=== PATIENT | female | born 1980 | race Caucasian/White ===

== ENCOUNTER → 2020-09-06 13:38 | Outpatient (CLI) | payer OTHER, SELFPAY ==
--- NOTE | 2020-09-06 13:45 | RAD_ITS ---
STUDY: X-RAY - LEFT FOOT CLINICAL: Female, 39 years old. Pain, decreased range of motion TECHNIQUE: 3 view(s) of the foot. COMPARISON: None. FINDINGS: Normal talus and tarsal bones. Calcaneal spurs Normal visualized subtalar, talonavicular, calcaneocuboid, tarsal and tarsometatarsal articulations. Normal metatarsi. Normal metatarsophalangeal joint of the great toe. Normal tibial and fibular sesamoid bones. Normal interphalangeal joint of the great toe. Normal phalanges of the great toe. Normal second through fifth metatarsophalangeal joints. Normal interphalangeal joints and phalanges of the lesser toes. The soft tissue structures are unremarkable. RAD/Foot min 3 Views IMPRESSION: Calcaneal spurs, no demonstrated fracture or suspicious osseous lesion Electronically Signed: Santi Hinkle MD at 15:13 EST , Service support ,
--- NOTE | 2020-09-06 13:45 | RAD_ITS ---
STUDY: X-RAY - LEFT ANKLE REASON FOR EXAM: Female, 39 years old. Pain and swelling TECHNIQUE: 3 view(s) of the ankle. COMPARISON: None. FINDINGS: Normal visualized distal tibia and fibula. Normal medial and lateral malleoli. Normal tibiotalar articulation and ankle mortise. Normal visualized talus. Calcaneal spurs The visualized subtalar, talonavicular, calcaneocuboid and tarsal articulations are normal. The soft tissue structures are unremarkable. RAD/Ankle min 3 Views IMPRESSION: Calcaneal spurs, no demonstrated fracture or suspicious osseous lesion Electronically Signed: Santi Hinkle MD at 15:12 EST , Service support ,
== END ==
PROVIDERS: PCP Family Medicine; Referring Provider Podiatrist; Visit Provider Podiatrist
DX: M76.60 Achilles tendinitis, unspecified leg (principal); M77.32 Calcaneal spur, left foot
CPT/HCPCS: 73610; 73630

== ENCOUNTER 2020-10-19 05:52 | Day surgery (SDC) | payer OTHER, SELFPAY ==
[2020-10-19] VITALS (10 sets, daily range): BP systolic 107–130; BP diastolic 55–70; PULSE 39–60; RESP 14–18; TEMP 36.3–36.8; O2SAT 99–100; BMI 18.3
--- NOTE | 2020-10-19 | TESH_PTH ---
PATIENT: LUDA HONG [place] [facility] [place][id number] AGE/SX: 39/F ROOM: RE10/19/[address]: Dr. Bobby Wolf DPM : 1980 BED: DIS: 10/19/2020 SPEC #: [id number] RECD: 10/19/20 11:19 STATUS: JERROD REGely #: [id number] LIANA: 10/19/20 00:[address]: Bobby Wolf DEPT: SURGICAL PATHOLOGY RECD BY: Jacky Emerson ENTERED: 10/19/20 11:19 SP TYPE: TENDON OTHR DR: Dr. Che Gomez, DO Tissues: Tendon and tendon sheath, NOS Procedures: Decalcification bone/plaque Surgery Specimen Level IV HEADER OPERATION: Left foot excision of Patsy's deformity, detach/reattached Achilles PRE-OP DIAGNOSIS: Patsy's deformity, Achilles tendinopathy with partial tear TISSUE SUBMITTED: Patsy's deformity and debrided Achilles tendon MICROSCOPIC DIAGNOSIS Patsy's deformity and debrided Achilles tendon, excision: Bone with reparative and reactive change. Tendinous tissue with focal reparative change. AM:yaniv 10/25/2020 MICROSCOPIC DESCRIPTION Slides are reviewed. GROSS DESCRIPTION Received in fixative is one container labeled with the patient's name and designated Patsy's deformity Achilles tendon. The specimen consists of multiple irregular fragments of indurated, mcgrath-white soft tissue and bone that in aggregate measure 7 x 5 x 1 cm. Robotic Technician sections are submitted in one cassette after decalcification. / AM:yaniv 10/19/20 TC:5 CPT: 12189, 80976
[2020-10-19] MEDS: Lactated Ringers 1,000 ML 100 ML IV ×2 (06:30→07:30)
[2020-10-19 06:36] LABS: Absolute Lymphocyte Count 1.48 X10^3/uL (0.83-4.51); Absolute Neutrophil Count 3.7 X10^3/uL (2.0-7.7); Basophil# 0.07 X10^3/uL; Basophil% 1.2 % (0-1); Eosinophil# 0.11 X10^3/uL; Eosinophils% 1.9 % (0-5); Hematocrit 40.2 % (37-47); Lymphocyte # 1.48 X10^3/ul (4.0); Lymphocyte % 25.2 % (19-41); Mean Corp Hgb Conc 32.3 g/dL (32-36); Mean Corpuscular Hgb 29.7 pg (27.0-32.0); Mean Platelet Vol. 10.7 fl (6.2-12.0); Monocyte# 0.47 X10^3/uL; NRBC Flagged by Analyzer 0 % (0-5); Neutrophil # 3.72 X10^3/uL (2.7-7.7); Neutrophil % 63.2 % (47-70); Platelet Count 228 K/mm3 (150-450); RBC Distribution Width CV 12.4 % (11.6-14.6); Red Blood Count 4.37 M/mm3 (4.2-5.4); White Blood Count 5.9 K/mm3 (4.4-11.0)
[2020-10-19 06:38] LABS: Internal QC Validated? YES +Cl - CLEAR BKGD; Pregnancy, Urine Negative Negative
[2020-10-19 06:52] LABS: ALB/GLOB Ratio 1.1 RATIO (0.9-2.4); AST(SGOT) 43 U/L (15-37); Alanine Aminotransfer ALT/SGPT 53 U/L (13-56); Alkaline Phosphatase 39 U/L (45-117); Anion Gap 4 (5-15); BUN 21 mg/dL (7-18); BUN/Creat Ratio 23.8 RATIO (10-20); Calcium,Total 8.8 mg/dL (8.5-10.1); Chloride 108 mmol/L (98-107); Creatinine, Serum 0.88 mg/dL (0.55-1.02); EST Glomerular Filtration Rate 75 mL/min (>60); Est Glom Filt Rate - Afr Amer 91 mL/min (>60); Estimated Creatinine Clearance 73.98 ml/min; Globulin 3.5 g/dL (2.2-4.2); Glucose 81 mg/dL (74-106); Protein, Total 7.5 g/dL (6.4-8.2); Sodium Level 139 mmol/L (136-145)
--- NOTE | 2020-10-19 07:10 | RAD_ITS ---
STUDY: X-RAY - LEFT CALCANEUS REASON FOR EXAM: Female, 39 years old. EXCISION OF HAGLUNDS DEFORMITY, TENDON DEBRIDEMENT AND REPAIR TECHNIQUE: 2 view(s) of the calcaneus were obtained. COMPARISON: None. FINDINGS: There has been excision of the posteriosuperior aspect of the calcaneal tuberosity. There is plantar calcaneal spur. There are postsurgical changes of the soft tissues. RAD/Calcaneus min 2 Views IMPRESSION: See above. Electronically Signed: Joseph Courtney MD at 11:03 EDT Tel , Service support ,
[2020-10-19] MEDS: Cefazolin 2 GM in 0.9% Normal Saline 100 ML IV (07:23)
--- NOTE | 2020-10-19 07:29 | DCINST_ITS ---
Discharge Diet: Light diet - advance as tolerated Discharge Activity: May Not Drive, May not drive while taking narcotic pain medications., Use Walker, Use Crutches Weight Bearing Status: No weight bearing - No weightbearing left foot. Keep extremity elevated above heart level: Left Leg - Keep left foot elevated with pillows for at least 50 minutes an hour. Keep pressure off of left heel. Call your doctor if your incision/area has: Continuous Slow Oozing, Sudden Increased Bleeding, Foul Smelling Discharge Call your doctor if you observe: Fever of 101 or Higher, Shortness of breath, Chest pain, Increased palpitations (irregular heartbeat), Calf discomfort, Uncontrolled pain Cleanse incision/area with: Do not get Incision Wet, Keep Dressing Clean & Dry Additional Instructions: Take 1 tablet of Aspirin (325mg tablet) by mouth every morning to help prevent a blood clot, then take 1 tablet of Aspirin (325mg tablet) by mouth every 6 hours as needed for pain. You can also take hydrocodone 5mg/acetaminophen 300mg - 1-2 tabs by mouth every 6 hours as needed for pain. Allergies/Adverse Reactions: Allergies No Known Allergies Allergy (Verified 10/19/20 06:36) Medications to take at Discharge Ascorbic Acid [Vitamin C] 500 mg PO DAILY 10/12/20 Multivitamin [Multiple Vitamins] 1 ea PO DAILY 10/12/20 Aspirin 325 mg PO Q6H PRN PRN #60 tablet 10/19/20 Hydrocodone/Acetaminophen [Vicodin 5-300 mg Tablet] 1 - 2 tablet PO Q6H PRN PRN 3 Days #20 tablet 10/19/20 The following prescriptions were given: Aspirin 325 mg PO Q6H PRN PRN #60 tablet PRN Reason: Pain Score 1-10 Prescription Printed Hydrocodone/Acetaminophen [Vicodin 5-300 mg Tablet] 1 - 2 tablet PO Q6H PRN PRN 3 Days #20 tablet PRN Reason: Pain Score 4-10 Prescription Printed Primary Care Physician: hCe Gomez DO [Primary Care Provider] - Test Results: Test results from this visit will be discussed in further detail at your follow- up appointment, if applicable. Please Follow Up With: Bobby Wolf DPM - call Dr. Wolf sooner if needed - office: [phone], hospital: [phone], cell: [phone] When: 1 week, sooner if needed
[2020-10-19] MEDS: Bupivacaine Mpf 0.5% 30 ML VIAL INFILT (08:05)
--- NOTE | 2020-10-19 09:43 | RAD_ITS ---
STUDY: X-RAY - LEFT CALCANEUS REASON FOR EXAM: Female, 39 years old. post op TECHNIQUE: 2 view(s) of the calcaneus were obtained. COMPARISON: None. FINDINGS: There is a cast in place. There has been excision of the posteriosuperior aspect of the calcaneal tuberosity. There is plantar calcaneal spur. There are postsurgical changes of the soft tissues. RAD/Calcaneus min 2 Views IMPRESSION: See above. Electronically Signed: Joseph Courtney MD at 11:04 EDT Tel , Service support ,
--- NOTE | 2020-10-19 09:44 | PCM.OPRPT ---
Report of Operation Date of Procedure: 10/19/20 Pre-Operative Diagnosis: Patsy's deformity, achilles tendinopathy, left Post-Operative Diagnosis: Same Surgery/Procedure Performed:: Resection of Patsy's deformity, left. Debride and repair of achilles tendon, left door operator: yes - Dr. Jeremiah Benítez Type of Anesthesia:: General, Local Specimen's removed: Resected Patsy's deformity, debrided achilles tendon - left - sent to pathology Estimated Blood Loss (mL): 5mL Description of Procedure: Indications: This is a 39 year old female with chronic left heel and Achilles pain, despite extensive conservative/nonsurgical management. She continues to have pain and symptoms. Xrays showed a Patsy's deformity, as well as Achilles tendinosis with partial tearing along with bone marrow edema to the posterior superior calcaneus. She continues to have pain which was really bothering her and affecting her daily activities. She is a runner and is significantly affecting her running as well. Because symptoms persist, she has elected to undergo detach/reattach Achilles tendon with resection of the Patsy's Deformity along with debride and repair the Achilles tendon. MRI was reviewed pre op. The procedures were discussed with her in great detail, reviewed the possible benefits vs risks and potential complications. She was asked and she has personally has no history or family history of blood clots or clotting disorders. Typical post op recovery was reviewed with her. The goals and the expectations were reviewed with her in detail. The consent forms were reviewed with her in detail, and she freely signed them. No guarantees were given or implied. All of her questions were answered. Operative Procedure: The patient was brought back into the operating room. A time out was performed and the patient was properly identified and the surgical plan was confirmed. The patient received 2 gram of IV Ancef for antibiotic prophylaxis. A well padded pneumatic tourniquet was applied around the left thigh. The patient received general per the anesthesiologist. The patient was placed on the operating room table in the prone position, with good padding and offloading for all of the bony prominences. She was carefully secured to the operating room table with a safety belt around her waist. The left foot/ankle/leg were scrubbed, prepped, draped in the usual aseptic fashion. The left foot was elevated and exsanguinated using an Esmarch bandage and the left thigh pneumatic tourniquet was inflated to 300mmHg. 20mL of 0.5% bupivacaine plain was given as a local nerve block around the posterior heel surgical site. Attention was directed to the posterior heel. There was a large palpable exostosis present at the level of the posterior calcaneus consistent with Patsy's deformity. A linear incision was made using a 15 blade to the posterior aspect of the distal Achilles tendon and posterior calcaneus. Careful blunt dissection was completed down through the subcutaneous tissue layer, down to the Achilles tendon and posterior calcaneus. There was noted to be thickening and calcification in the Achilles tendon distally with partial tearing of the tendon distal laterally. The distal Achilles tendon was incised at the level of the distal midline, and was partially reflected off of the central posterior calcaneus exposing the Patsy's deformity. The Patsy's deformity were resected using a powered sagittal saw and a powered rasp, the resected bone was sent to pathology. Intraoperative fluoroscopy was obtained confirming proper resection of the Patsy's deformity. The Achilles tendon was debrided of the unhealthy tendinosis calcific tissue down to healthy viable tendon, this was sent with the resected Patsy's deformity to pathology as specimen. The site was flushed out with copious amounts of normal saline solution. The Achilles tendon was reattached to the central portion of the posterior calcaneus using 1 Arthrex Speedbridge in standard fashion. 2 pilot control operator helper holes were created for the 4.75mm BioComposite Swivelock anchors at the level of 1 cm proximal to the distal insertion of the Achilles tendon and central to each half of the tendon. The pilot control operator helper holes were tapped with the 4.75mm tap. The two 4.75mm BioComposite Swivel anchors were inserted. The suture was passed through the Achilles tendon on each side. The 2 distal holes were prepared on the posterior calcaneus distal to the insertion of the Achilles tendon with the drill and then the tap. One suture tail from each of the proximal anchors were retrieved and passed through the 2 SwiveLock anchors. The tension was adjusted to the appropriate tension and the 4.75 mm Swivelock anchors were inserted into the distal prepared bone sites. The suture tails were cut flush with the Swivelock anchors. The Swivelock anchors were flush with the bone. The FiberWire suture from each Swivelock anchor was also passed through the Achilles tendon and tied for extra stability and repair. 3-0 Vicryl was also used to repair the partial Achilles tendon tear, as well as reapproximate the midline Achilles tendon incision. There was excellent repair of the Achilles tendon, with negative Herrrea test. The surgical site was flushed out with copious amounts of normal saline solution. The subcutaneous tissue layer was reapproximated using 4-0 Vicryl. the skin was reapproximated using 4-0 Monocryl. The pneumatic tourniquet was deflated at 77 minutes, there was immediate return of warmth and perfusion to the foot and to all toes on the foot with normal temperature present. CFT < 2 seconds to all toes. An additional 10mL of 0.5% bupivacaine plain was given as a local nerve block around the surgical site. A dressing was applied which consisted of Cavilon to the sutured skin incision edges, and then steristrips, Betadine soaked adaptic, 4x4 gauze, Kerlix and cole bandage, and a well padded below the knee posterior splint with heel offloaded. The patient tolerated the above operative procedure well at the anesthesia well with no complication. The patient was transported to the recovery room with vital signs stable and in good condition. Post operative orders were placed. Post operative instructions were reviewed with her as well as with her who was present with her today. No weightbearing left foot, keep left foot elevated for at least 50 minutes of every hour, keep dressing clean, dry and intact. Prescription for [place] 5mg/325mg was prescribed: 1-2 tabs PO q 6 hours PRN pain for pain control, as well as Aspirin 325mg tab - 1 tab PO q 6 hours. She is to follow up with me within 1 week or sooner if needed. Post operative calcaneal xrays, 2 views, were obtained in the recovery room which confirmed resection of the left Patsy deformity, with no post operative complications. Grafts/Implants Used: Arthrex Achilles Spreedbridge - Complications None
[2020-10-19 10:55] LABS: AST(SGOT) 34 U/L (15-37)
== END 2020-10-19 11:37 | disposition home or self-care (01) ==
LOC: SDC 05:53 → AC 05:53
PROVIDERS: Anesthesiology; PCP Family Medicine; Referring Provider Podiatrist; Visit Provider Podiatrist
PROC: (CPT 28899; principal; 2020-10-19 07:15)
DX: M92.62 Juvenile osteochondrosis of tarsus, left ankle (principal); M76.62 Achilles tendinitis, left leg; Z20.822 Contact with and (suspected) exposure to COVID-19
CPT/HCPCS: 01472; 27650; 28118; 73650; 76000; 80053; 81025; 84450; 85025; 87426; 88304; 88305; 88311; C9803; J7120; J2405

== ENCOUNTER → 2022-12-09 | Outpatient (CLI) | payer OTHER, SELFPAY ==
--- NOTE | 2022-12-09 16:00 | MRI_ITS ---
STUDY: MRI LEFT ANKLE WITHOUT CONTRAST REASON FOR EXAM: Female, 41 years old. Achilles tendinitis. Plantar fasciitis. Status post posterior calcaneal surgery. TECHNIQUE: Standardized fat and water weighted pulse sequences were obtained in all 3 orthogonal planes. COMPARISON: None. FINDINGS: Normal subcutis adipose space. Normal posterior tibialis tendon. Normal flexor digitorum longus tendon. Normal flexor hallucis longus tendon. Normal peroneus longus and brevis tendons. Normal tibialis anterior tendon. Normal extensor hallucis longus tendon. Normal extensor digitorum longus tendons. 2 screws in the posterior calcaneus at the Achilles tendon insertion. Distal Achilles tendinosis. Mild thickening of the proximal plantar fascia. Normal plantar calcaneal tubercles. Normal intrinsic muscles of the rearfoot. Normal distal tibiofibular syndesmotic ligamentous complex. Normal lateral ligamentous complex. Normal subtalar ligaments and sinus tarsi. Normal deltoid ligamentous complexes. Normal plantar calcaneonavicular (spring) ligament. Normal tibiotalar articulation. Normal talar dome. Normal subtalar articulations. Normal talonavicular articulation. Normal calcaneocuboid articulation. Normal navicular-cuneiform articulations. MRI/Lower Ext Joint Only (Routine) IMPRESSION: Postsurgical changes of the posterior calcaneus at the Achilles tendon insertion. Distal Achilles tendinosis. Proximal plantar fasciitis. No other abnormality. Electronically Signed: Vishal Dickey, at 12:01 EDT ,
== END | disposition home or self-care (01) ==
LOC: MRI 15:27
PROVIDERS: PCP Family Medicine; Referring Provider Podiatrist; Visit Provider Podiatrist
DX: M76.62 Achilles tendinitis, left leg (principal); M72.2 Plantar fascial fibromatosis
CPT/HCPCS: 73721

== ENCOUNTER 2023-02-06 08:57 | Day surgery (SDC) | payer OTHER, SELFPAY ==
[2023-02-06] VITALS (7 sets, daily range): BP systolic 86–111; BP diastolic 51–68; PULSE 35–60; RESP 16–18; TEMP 36.4–36.9; O2SAT 99–100; BMI 18.3
[2023-02-06 09:37] LABS: Internal QC Validated? YES +Cl - CLEAR BKGD; Pregnancy, Urine Negative Negative
[2023-02-06] MEDS: Lactated Ringers 1,000 ML 15 ML IV ×2 (09:40→11:31)
--- NOTE | 2023-02-06 10:30 | TESH_PTH ---
PATIENT: LUDA HONG LOC: [facility] – [place] U#:[id number] AGE/SX: 42/F ROOM: RE02/06/[address]: JACK CallejasM : 1980 BED: DIS: 02/06/2023 SPEC #: [id number] RECD: 02/06/23 14:04 STATUS: JERROD SEEMA #: [id number] LIANA: 02/06/23 10:[address]: Bobby Wolf DEPT: SURGICAL PATHOLOGY RECD BY: Jenny Campos ENTERED: 02/09/23 08:42 SP TYPE: TENDON OTHR DR: Dr. Che Gomez, DO Tissues: Tendon and tendon sheath, NOS Procedures: Surgery Specimen Level III HEADER OPERATION: Removal of Haglunds Deformity/Exostosis of the heel PRE-OP DIAGNOSIS: Haglunds Deformity of left heel TISSUE SUBMITTED: Debrided christi's tendon and Haglunds deformity left ankle. MICROSCOPIC DIAGNOSIS Christi's tendon and Haglunds deformity left ankle, excision: Fragments of fibroadipose tissue, fibroconnective tissue, and bone with reactive changes. SJ: 02/10/2023 MICROSCOPIC DESCRIPTION Slides are reviewed. GROSS DESCRIPTION Received is one container labeled with the patient name and designated debrided christi's tendon and Hagland's deformity left ankle. The specimen consists of multiple irregular fragments of light mcgrath indurated tissue that in aggregate measure 5.5 x 3.5 x 1.5 cm. The inside sales representative specimen is submitted in two cassettes. / SJ: 02/09/23 TC:5 CPT:03024
--- NOTE | 2023-02-06 10:30 | RAD_ITS ---
HISTORY: PAIN. TECHNIQUE: Calcaneus 2 spot images. COMPARISON: Collateral are 10/19/2021. FINDINGS: OSSEOUS STRUCTURES: Partial resection of the calcaneal tuberosity. Plantar calcaneal spur noted. FLUOROSCOPY TIME: 29 seconds. RADIATION DOSE: 0.19 mGy RAD/Calcaneus min 2 Views IMPRESSION: Image guidance for left calcaneal surgery. Electronically Signed: Hodan Aj MD at 13:28 EDT ,
--- NOTE | 2023-02-06 11:22 | PCM.DC ---
Discharge Instructions Diet Discharge Diet: Light diet - advance as tolerated Activity Weight Bearing Status: No weight bearing (No weightbearing left foot) Keep extremity elevated above heart level: Left Leg (Keep left foot elevated for at least 50 minutes of every hour.) Dressing / Incision Call your doctor if your incision/area has: Sudden Increased Bleeding and Foul Smelling Discharge Call your doctor if you observe: Fever of 101 or Higher, Shortness of breath, Chest pain, Increased palpitations (irregular heartbeat), Calf discomfort and Uncontrolled pain Change Dressing in: do not change dressing Remove Dressing in: do not remove dressing Cleanse incision/area with: Keep Dressing Clean & Dry Follow Up Care Please Follow Up With: Bobby Wolf DPM When: 1 week, sooner if needed. Test Results: Test results from this visit will be discussed in further detail at your follow-up appointment, if applicable. Discharge Plan Admission Attending Provider: Bobby Wolf Primary Care Provider: Che Gomez Discharge Orders/Prescriptions Prescriptions: New hydrocodone-acetaminophen 5-325 mg tablet 1 - 2 tab PO Q6H 3 Days Qty: 12 0RF ibuprofen 200 mg tablet 400 mg PO Q6H Qty: 30 0RF No Action multivitamin 1 EACH tablet 1 ea PO DAILY ascorbic acid (vitamin C) 500 MG tablet extended release 500 mg PO DAILY ferrous sulfate [iron] 325 mg (65 mg iron) tablet 325 mg PO DAILY Referrals / Follow Up: Che Gomez DO [Primary Care Provider] - Disposition Disposition (needs filled in before D/C Order can be placed): Home, Self Care
[2023-02-06] MEDS: Cefazolin 2 GM in 0.9% Normal Saline 100 ML IV (11:30)
[2023-02-06] MEDS: Lidocaine 1%/Epi 1:100 (30ml) 30 ML VIAL (11:40)
[2023-02-06] MEDS: Bupivacaine Mpf 0.5% 30 ML VIAL (13:24)
--- NOTE | 2023-02-06 13:35 | OP.PCM_ITS ---
Report of Operation Date of Procedure: 02/06/23 Pre-Operative Diagnosis: Patsy's deformity, exostosis, achilles tendinosis le ft heel Post-Operative Diagnosis: Same Surgery/Procedure Performed:: Removal of Patsy's defomrity/exostosis of left heel with detach, debride, repair and reattach achilles tendon, left Surgeon: Bobby Wolf brick veneer maker: Karla Type of Anesthesia: General and Local Specimen's removed: Debrided left achilles tendon and removed patsy's deformity from left heel Estimated Blood Loss (mL): 5mL Description of Procedure: Indications: This is a 42 year old female with chronic left heel and Achilles pain, despite extensive conservative/nonsurgical management. She continues to have posterior medial left eel pain and symptoms. She continues to have pain which was really bothering her and affecting her daily activities. 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 Because symptoms persist, she has elected to undergo detach/reattach Achilles tendon with resection of the Patsy's Deformity along with debride and repair the Achilles tendon. MRI was reviewed pre op. The procedures were discussed with her in great detail, reviewed the possible benefits vs risks and potential complications. She was asked and she has personally has no history or family history of blood clots or clotting disorders. Typical post op recovery was reviewed with her. The goals and the expectations were reviewed with her in detail. The consent forms were reviewed with her in detail, and she freely signed them. No guarantees were given or implied. All of her questions were answered. Operative Procedure: The patient was brought back into the operating room. A time out was performed and the patient was properly identified and the surgical plan was confirmed. The patient received 2 gram of IV Ancef for antibiotic prophylaxis. A well padded pneumatic tourniquet was applied around the left thigh. The patient received general per the anesthesiologist. The patient was placed on the operating room table in the prone position, with good padding and offloading for all of the bony prominences. She was carefully secured to the operating room table with a safety belt around her waist. The left foot/ankle/leg were scrubbed, prepped, draped in the usual aseptic fashion. Also a total of 7mL of 1% Lidocaine plain with 1:200,000 epi was given as a local block around the left heel after the overlying skin was cleansed wit 70% Isopropyl alcohol. The left foot was elevated and the left thigh pneumatic tourniquet was inflated to 300mmHg. Attention was directed to the posterior medial heel. There was exostosis present at the level of the posterior medial calcaneus consistent with Patsy's deformity. A linear incision was made using a 15 blade to the posterior medial aspect of the distal Achilles tendon and posterior calcaneus. Careful blunt dissection was completed down through the subcutaneous tissue layer, down to the medial Achilles tendon and posterior calcaneus. There was noted to be thickening and calcification in the Achilles tendon at this level. The distal medial Achilles tendon was incised, and was partially reflected off of the medial posterior calcaneus exposing the deformity. The deformity were resected using a powered sagittal saw and a powered rasp, the resected bone was sent to pathology. It was also noted the previous medial bone anchors were slightly prominent was the prominence was removed. Intraoperative fluoroscopy was obtained confirming proper resection of the Patsy's deformity. The Achilles tendon was debrided of the unhealthy tendinosis calcific tissue down to healthy viable tendon, this was sent with the resected Patsy's deformity to pathology as specimen. The site was flushed out with copious amounts of normal saline solution. The Achilles tendon was reattached to the medial portion of the posterior calcaneus using 1 Arthrex Speedbridge in standard fashion. 2 towing pilot holes were created for the Bio[employer] Swivelock anchors at the level of medial posterior calcaneus, once of which was 1 cm proximal to the distal insertion of the Achilles tendon and one distal to the insertion site was well. The towing pilot holes were tapped appropriately. The Bio[employer]posite Swivel anchors were inserted. The suture was passed through the Achilles tendon on each side, in which the suture tails from the proximal anchor was retrieved and passed through the SwiveLock anchor. The tension was adjusted to the appropriate tension and the 4.75 mm Swivelock anchor was inserted into the distal prepared bone site. The suture tails were cut flush with the Swivelock anchor. The Swivelock anchors were buried with the bone. 3-0 Vicryl was also used to reapproximate the Achilles tendon incision. There was excellent repair of the Achilles tendon, with negative Herrera test. The surgical site was flushed out with copious amounts of normal saline solution. The subcutaneous tissue layer was reapproximated using 3-0 Vicryl. the skin was reapproximated using 4-0 Monocryl. The pneumatic tourniquet was deflated at 96 minutes, there was immediate return of warmth and perfusion to the foot and to all toes on the foot with normal temperature present. CFT < 2 seconds to all toes. 8mL of 0.5% bupivacaine plain was given as a local nerve block around the surgical site. A dressing was applied which consisted of Cavilon to the sutured skin incision edges, and then steristrips, Betadine soaked adaptic, 4x4 gauze, Kerlix and cole bandage, and a well padded below the knee posterior splint with heel offloaded. The patient tolerated the above operative procedure well at the anesthesia well with no complication. The patient was transported to the recovery room with vital signs stable and in good condition. Post operative orders were placed. Post operative instructions were reviewed with her as well as with her who was present with her today. No weightbearing left foot, keep left foot elevated for at least 50 minutes of every hour, keep dressing clean, dry and intact. Prescription for [place] 5mg/325mg was prescribed: 1-2 tabs PO q 6 hours PRN pain for pain control. She is to follow up with me within 1 week or sooner if needed. Post operative foot xrays, 3 views, were obtained in the recovery room which confirmed resection of the left Patsy deformity, with no post operative complications. Grafts/Implants Used: Arthrex swiveljamir Complications None
--- NOTE | 2023-02-06 14:00 | RAD_ITS ---
HISTORY: post op. TECHNIQUE: XR Foot Min 3 Views. COMPARISON: 09/06/2020. FINDINGS: BONES : Partial resection of the calcaneal tuberosity at the Achilles tendon insertion. Small plantar calcaneal spur again seen. Mineralization unremarkable. JOINTS: No dislocation. Joint spaces maintained. SOFT TISSUES: Mild soft tissue edema with overlying cast noted. RAD/Foot min 3 Views IMPRESSION: Mild postoperative soft tissue swelling of the left foot. Postoperative changes of the posterior calcaneus. Electronically Signed: Hodan Aj MD at 11:37 EDT ,
== END 2023-02-06 15:38 | disposition home or self-care (01) ==
LOC: SDC 08:58 → AC 08:59
PROVIDERS: Anesthesiology; PCP Family Medicine; Referring Provider Podiatrist; Visit Provider Podiatrist
PROC: (CPT 28899; principal; 2023-02-06 10:15)
DX: M92.62 Juvenile osteochondrosis of tarsus, left ankle (principal); M76.62 Achilles tendinitis, left leg; M25.775 Osteophyte, left foot
CPT/HCPCS: 28119; 27654; 01480; 73630; 73650; 76000; 81025; 88304; J7120; J2405